=== PATIENT | male | born 1970 | race Caucasian/White ===

== ENCOUNTER 2016-12-12 22:11 | Emergency (ER) | payer OTHER, SELFPAY ==
[~2016-12-12] VITALS: Ht 172.7 cm; Wt 96.4 kg
[2016-12-12 23:18] LABS: MEAN CORPUSCULAR HEMOGLOBIN 32.7 pg (27.0-33.0); MEAN CORPUSCULAR HGB CONC 34.3 g/dl (32.0-36.5); MEAN CORPUSCULAR VOLUME 95.3 fl (80.0-96.0); RED CELL DISTRIBUTION WIDTH 13.4 % (11.5-14.5); WHITE BLOOD COUNT 12.5 K/mm3 (4.0-10.0)
[2016-12-13 00:07] LABS: ALBUMIN 4.2 GM/DL (3.2-5.2); ALBUMIN/GLOBULIN RATIO 1.05 (1.00-1.93); ALKALINE PHOSPHATASE 74 U/L (45-117); ALT/SGPT 54 U/L (12-78); ANION GAP 9 MEQ/L (8-16); AST/SGOT 40 U/L (15-37); BILIRUBIN,DIRECT < 0.1 MG/DL (0.0-0.2); BILIRUBIN,TOTAL 0.2 MG/DL (0.2-1.0); BLOOD UREA NITROGEN 14 MG/DL (7-18); CALCIUM LEVEL 9.2 MG/DL (8.5-10.1); CARBON DIOXIDE LEVEL 25 MEQ/L (21-32); CHLORIDE LEVEL 106 MEQ/L (98-107); CREATININE FOR GFR 0.89 MG/DL (0.70-1.30); GLOMERULAR FILTRATION RATE > 60.0 (>60); GLUCOSE, FASTING 89 MG/DL (70-105); POTASSIUM SERUM 4.2 MEQ/L (3.5-5.1); SODIUM LEVEL 140 MEQ/L (136-145); TOTAL PROTEIN 8.2 GM/DL (6.4-8.2)
[2016-12-13 05:29] VITALS: BP 133/85
== END 2016-12-13 05:30 | disposition home or self-care (01) ==
LOC: M ED 23:44
DX: F10.129 Alcohol abuse with intoxication, unspecified (principal); E78.5 Hyperlipidemia, unspecified
CPT/HCPCS: 36415; 80048; 80076; 84443; 85027; 99284; G0480

== ENCOUNTER 2019-05-21 12:24 | Emergency (ER) | payer OTHER, SELFPAY ==
[~2019-05-21] VITALS: Ht 172.7 cm; Wt 94.7 kg
[2019-05-21] MEDS ORDERED: ISOVUE-370 76% 100ML VIAL (Q9967) As Ordered ONE (13:18)
[2019-05-21 13:30] LABS: BILIRUBIN, URINE MANUAL NEGATIVE (NEGATIVE); GLUCOSE, URINE (UA) MANUAL NEGATIVE (NEGATIVE); KETONE, URINE MANUAL NEGATIVE (NEGATIVE); UROBILINOGEN, URINE MANUAL NORMAL (NORMAL)
[2019-05-21 13:37] LABS: BASO # 0.1 10^3/uL (0.0-0.2); BASO % 0.4 % (0.0-1.0); EOS # 0.1 10^3/uL (0.0-0.5); EOS % 0.3 % (0.0-3.0); HEMATOCRIT 46.4 % (42.0-52.0); HEMOGLOBIN 15.4 g/dl (13.5-17.5); LYMPH # 1.3 10^3/uL (1.5-5.0); LYMPH % 6.7 % (24.0-44.0); MEAN CORPUSCULAR HEMOGLOBIN 32.4 pg (27.0-33.0); MEAN CORPUSCULAR HGB CONC 33.2 g/dl (32.0-36.5); MEAN CORPUSCULAR VOLUME 97.7 fl (80.0-96.0); MONO # 0.8 10^3/uL (0.0-0.8); MONO % 4.3 % (0.0-5.0); NEUTROPHILS # 16.9 10^3/uL (1.5-8.5); NEUTROPHILS % 87.8 % (36.0-66.0); PLATELET COUNT, AUTOMATED 214 10^3/uL (150-450); RED BLOOD COUNT 4.75 10^6/uL (4.30-6.10); WHITE BLOOD COUNT 19.2 10^3/uL (4.0-10.0)
[2019-05-21 13:47] LABS: BACTERIA, URINE SMALL AMOUNT; HYALINE CAST, URINE NONE SEEN /lpf (0-1); RENAL EPITHELIAL CELLS, URINE SMALL AMOUNT /hpf; SQUAMOUS EPITHELIAL CELL URINE SMALL AMOUNT /hpf (SMALL AMT)
--- NOTE | 2019-05-21 13:57 | REP ---
Clinical: Perirectal pain and swelling. Technique: Axial contrast enhanced images from the lung bases to the pubic symphysis using 100 ml Isovue 370 intravenous contrast material with coronal and sagittal re-formations. Findings: There is a left pararenal abscess measuring 2.2 x 1.0 cm maximal diameter and approximately 7.8 cm in length. Subtle adjacent dermal thickening and subcutaneous stranding noted. Fatty infiltration to the liver without focal hepatic lesion. Spleen, pancreas, gallbladder, right adrenal gland and bilateral kidneys are normal. 3.7 cm complex enhancing lesion in the left adrenal gland. The enteric system is without obstruction or acute inflammatory process. Normal terminal ileum and appendix identified in the right lower quadrant. Sigmoid diverticulosis noted without acute diverticulitis. Pelvis demonstrates normal bladder and age appropriate prostate/seminal vesicles. Atherosclerotic changes to the aorta without aneurysm or dissection. Musculoskeletal structures are intact. Lung bases are clear. Impression: 1. Deep left perirectal/perianal abscess. 2. Sigmoid diverticulosis without acute diverticulitis. 3. Hepatic steatosis. 4. 3.6 cm heterogeneous enhancing nonspecific left adrenal mass possible atypical adenoma requires outpatient investigation. Electronically Signed by Rich Tan MD 05/21/2019 01:48 P
[2019-05-21 14:00] LABS: ALBUMIN 3.7 GM/DL (3.2-5.2); BILIRUBIN,DIRECT 0.1 MG/DL (0.0-0.2); BILIRUBIN,TOTAL 0.4 MG/DL (0.2-1.0); TOTAL PROTEIN 7.6 GM/DL (6.4-8.2)
[2019-05-21] MEDS ORDERED: PIPERACILLIN/TAZOBACTAM SOD 3.375 GM in D5W MINI-BAG PLUS 50 ML IV ONE (14:30)
[2019-05-21] MEDS ORDERED: ACETAMINOPHEN 325 MG TAB PO ONE (14:30)
[2019-05-21] MEDS ORDERED: FLAG500T PO (15:13)
[2019-05-21] MEDS ORDERED: CIPR-249 PO (15:13)
[2019-05-21 16:07] VITALS: BP 127/70
--- NOTE | 2019-05-24 10:29 | CR ---
DATE OF CONSULTATION: 05/21/2019 CHIEF COMPLAINT: Perirectal pain. HISTORY OF PRESENT ILLNESS: Patient is 48-year-old male who presents with perirectal pain and swelling for the past few days. It has been getting progressively worse. He denies any drainage on his own. He has had a similar lesion like this about 4 years ago that got really large. He came to emergency room, was not ever placed on any antibiotics or anything. It eventually popped on its own, relieve the pressure and went away. He has never had any surgeries or procedures performed. No colonoscopy. Only minimal anal exams. He has had intermittent swelling of this area over the past 4 years as well. Nothing has required any other treatment. This time, the reason he came is because he was having some fevers at home and some chills. In the emergency room, he did have a slight fever. White count was elevated. He had some fullness of perianal area on exam and CT was done which confirmed the perirectal abscess. Therefore, I was called to evaluate. PAST MEDICAL HISTORY: Hyperlipidemia, tobacco abuse. PAST SURGICAL HISTORY: None. ALLERGIES: None. HOME MEDICATIONS: Please see medical record. REVIEW OF SYSTEMS: Pertinent positives and negatives as stated in the history of present illness (HPI). PHYSICAL EXAMINATION: General: Alert and oriented times three. In no acute distress. VITALS: Temperature 100.7, pulse 76, respirations 17, blood pressure 127/70, pulse ox 96% room air. HEENT: Pupils equal round react to light and accommodation. HEART: S1, S2 regular rate and rhythm. LUNGS: Clear to auscultation bilaterally. Abdomen: Soft, nontender, nondistended. ANAL EXAM: There is a large perirectal abscess to the left of midline. There is about a 3 mm opening that is actively draining purulent fluid already likely secondary to infected fistula. LABORATORY DATA: White count 19.2, hemoglobin 15.4, platelets 214. IMAGING STUDIES: CT abdomen and pelvis shows a deep left perirectal perianal abscess, sigmoid diverticulosis without diverticulitis. ASSESSMENT/PLAN: The patient 48-year-old male with a perirectal abscess. Recommendation is to continue warm soaks and by mouth antibiotics. He is stable to be discharged home. He can use the antibiotics, Cipro and Flagyl for about 10 days. He will followup me in the office in 2 weeks and we will schedule him for outpatient perianal exam under anesthesia with possible fistulotomy in about 4-6 weeks. All of his questions were answered and he will return in the emergency room if the pain gets any worse, swelling gets worse, or he continues to have fevers.
--- NOTE | 2019-05-24 14:31 | ED PDOC ---
Post-Departure Follow-Up dr ohara faxed formal report of ct abd/pf ro fu George Hogan MD May 24, 2019 14:31
== END 2019-05-21 16:08 | disposition home or self-care (01) ==
LOC: M ED 12:24
DX: K61.1 Rectal abscess (principal); E78.5 Hyperlipidemia, unspecified; F17.200 Nicotine dependence, unspecified, uncomplicated
CPT/HCPCS: 74177; 80047; 80076; 81000; 83605; 85025; 96365; 99284; J2543; Q9967

== ENCOUNTER 2019-06-30 07:05 | Day surgery (SDC) | payer OTHER ==
[~2019-06-30] VITALS: Ht 172.7 cm; Wt 89.4 kg
[~2019-06-30 07:05] MED LIST: CIPR-249 PO; FLAG500T PO; NS 1,000 ML IV ONE
[2019-06-30] MEDS ORDERED: propofoL 200 MG/20 ML VIAL As Ordered ONE ×3 (08:19→08:30)
[2019-06-30] MEDS ORDERED: LIDOCAINE 2% INJ 100 MG/5 ML SDV (FOR ANES.) As Ordered ONE (08:20)
--- NOTE | 2019-06-30 08:40 | ROOR ---
Patient Name: Ancelmo Art Procedure Date: 06/30/2019 8:09 AM Date of : 1970 Age: 48 Room: [facility] Gender: Male Note Status: Finalized Procedure: Colonoscopy Indications: Screening for colorectal malignant neoplasm Providers: DO Jerica Gamez MD: Enrike Weinberg MD Requesting Provider: Medicines: Propofol per Anesthesia Complications: No immediate complications. Procedure: Pre-Anesthesia Assessment: - Prior to the procedure, a History and Physical was performed, and patient medications and allergies were reviewed. The patient is competent. The risks and benefits of the procedure and the sedation options and risks were discussed with the patient. All questions were answered and informed consent was obtained. Patient identification and proposed procedure were verified by the physician, the nurse and the anesthesiologist in the endoscopy suite. Mental Status Examination: normal. Airway Examination: normal oropharyngeal airway and neck mobility. Respiratory Examination: clear to auscultation. CV Examination: normal. Prophylactic Antibiotics: The patient does not require prophylactic antibiotics. Prior Anticoagulants: The patient has taken no previous anticoagulant or antiplatelet agents. ASA Grade Assessment: II - A patient with mild systemic disease. After reviewing the risks and benefits, the patient was deemed in satisfactory condition to undergo the procedure. The anesthesia plan was to use moderate sedation / analgesia (conscious sedation). Immediately prior to administration of medications, the patient was re-assessed for adequacy to receive sedatives. The heart rate, respiratory rate, oxygen saturations, blood pressure, adequacy of pulmonary ventilation, and response to care were monitored throughout the procedure. The physical status of the patient was re-assessed after the procedure. The Colonoscope was introduced through the anus and advanced to the cecum, identified by appendiceal orifice and ileocecal valve. The colonoscopy was performed without difficulty. The patient tolerated the procedure well. Findings: Multiple small and large-mouthed diverticula were found in the sigmoid colon and ascending colon. Two hyperplastic polyps were found in the sigmoid colon. The polyps were 2 to 4 mm in size. These polyps were removed with a jumbo cold forceps. Resection and retrieval were complete. Estimated blood loss was minimal. Internal hemorrhoids were found during retroflexion. The hemorrhoids were mild and Grade I (internal hemorrhoids that do not prolapse). The exam was otherwise without abnormality on direct and retroflexion views. Impression: - Diverticulosis in the sigmoid colon and in the ascending colon. - Two 2 to 4 mm polyps in the sigmoid colon, removed with a jumbo cold forceps. Resected and retrieved. - Internal hemorrhoids. - The examination was otherwise normal on direct and retroflexion views. Recommendation: - Patient has a contact number available for emergencies. The signs and symptoms of potential delayed complications were discussed with the patient. Return to normal activities tomorrow. Written discharge instructions were provided to the patient. - Repeat colonoscopy in 5-10 years for surveillance based on pathology results. - Return to my office as previously scheduled. Kevyn Abel DO 06/30/2019 8:39:40 AM Electronically signed by Kevyn Abel DO Number of Addenda: 0 Note Initiated On: 06/30/2019 8:09 AM Estimated Blood Loss: Estimated blood loss was minimal.
[2019-06-30 09:05] VITALS: BP 120/75
== END 2019-06-30 09:16 | disposition home or self-care (01) ==
LOC: M OPP 07:05
PROVIDERS: ATTEND Surgery
DX: Z12.11 Encounter for screening for malignant neoplasm of colon (principal); K64.0 First degree hemorrhoids; K63.5 Polyp of colon; K57.30 Diverticulosis of large intestine without perforation or abscess without bleeding; F17.210 Nicotine dependence, cigarettes, uncomplicated

== ENCOUNTER 2019-07-12 06:17 | Day surgery (SDC) | payer OTHER ==
[~2019-07-12] VITALS: Ht 172.7 cm; Wt 96.5 kg
[~2019-07-12 06:17] MED LIST changes: +LIDOCAINE 1% MDV 20ML VIAL SQ PRN; +LR 1,000 ML IV ONE; -NS 1,000 ML IV ONE
[2019-07-12] MEDS ORDERED: LIDOCAINE 2% INJ 100 MG/5 ML SDV (FOR ANES.) As Ordered ONE (07:11)
[2019-07-12] MEDS ORDERED: fentaNYL 100 MCG/2 ML INJECTION (J3010) As Ordered ONE (07:11)
[2019-07-12] MEDS ORDERED: ONDANSETRON 4MG/2ML VIAL (J2405) As Ordered ONE (07:11)
[2019-07-12] MEDS ORDERED: MIDAZOLAM INJ 2 MG/2 ML VIAL (J2250) As Ordered ONE (07:11)
[2019-07-12] MEDS ORDERED: propofoL 200 MG/20 ML VIAL As Ordered ONE (07:11)
[2019-07-12] MEDS ORDERED: ROCURONIUM BROMIDE 50 MG/5 ML VIAL As Ordered ONE (07:17)
[2019-07-12] MEDS ORDERED: CHLOROPROCAINE 2 % INJ PRES.FREE 20 ML VIAL (J2400) As Ordered ONE (07:44)
[2019-07-12] MEDS ORDERED: LR 1,000 ML IV SCH (08:15)
[2019-07-12] MEDS ORDERED: ONDANSETRON 4MG/2ML VIAL (J2405) IV PRN (08:15)
[2019-07-12] MEDS ORDERED: METOCLOPRAMIDE INJ 10MG/2ML VIAL (J2765) IV PRN (08:15)
[2019-07-12] MEDS ORDERED: fentaNYL 100 MCG/2 ML INJECTION (J3010) IV PRN (08:15)
[2019-07-12] MEDS ORDERED: oxyCODONE 5MG TAB PO PRN (08:15)
[2019-07-12] MEDS ORDERED: MEPERIDINE INJ 25 MG/ML VIAL (J2175) IV PRN (08:15)
[2019-07-12] MEDS ORDERED: GLYCOPYRROLATE INJ 0.2 MG/ML 2 ML VIAL As Ordered ONE (08:38)
[2019-07-12] MEDS ORDERED: GLYCOPYRROLATE INJ 0.2 MG/ML 2 ML VIAL IV PRN (08:45)
[2019-07-12] MEDS ORDERED: NORCO, ANEXSIA 5/325MG TABLET (HYDROcodone/ACETAMINOPHEN) PO PRN (09:16)
--- NOTE | 2019-07-12 09:20 | RO ---
DATE OF PROCEDURE: 07/12/2019 PREOPERATIVE DIAGNOSIS: Perianal fistula. POSTOPERATIVE DIAGNOSIS: Perianal fistula. PROCEDURE: Rectal exam under anesthesia with fistulotomy. SURGEON: Dr. Kevyn Abel CARDING DOUBLER: None. ANESTHESIA: Spinal with sedation. COMPLICATIONS: None. INDICATIONS FOR PROCEDURE: The patient is a 48-year-old male who has had multiple recurrent perianal abscesses and found to have a possible fistula on exam in the office as well as during colonoscopy. Recommendation was to proceed with rectal exam under anesthesia with possible fistulotomy. Risks and benefits of the procedure not limited to, but including bleeding, infection, damage to surrounding structures, need for further surgery and fecal incontinence were discussed in detail with the patient. Informed consent was obtained and the procedure was planned. DESCRIPTION OF PROCEDURE: The patient was brought back to operating room three. After sufficient spinal sedation he was placed in the prone position. The perirectal area was sterilely prepped and draped with Betadine. Next, a time out was done to confirm proper patient and proper procedure. Following that, a retractor was placed inside the rectum. The area was examined for any signs of fistulous tracts internally and nothing was easily apparent. There was opening in the perianal skin at about the 7 o'clock position. This was probed gently with a flexible probe. It only went in about 1.5 cm. I used the cautery to open the skin over top of this. Once the tract was opened, deep inside there was another separate hole extending posteriorly. I was able to probe that as well, which only went in another a few mm and ended bluntly as well. No signs of any tract extending inside of the perirectal area. This area was all opened up where the fistula tracts were identified. The retractor was then removed. The area was cleaned and dried. The patient was awakened from anesthesia and then taken to the postanesthesia care unit (PACU) in stable condition.
[2019-07-12] MEDS ORDERED: ATROPINE SULF 1MG/10ML SYRINGE (J0461) As Ordered ONE (09:36)
[2019-07-12] MEDS ORDERED: ATROPINE SULF 0.4 MG/ML 1ML VIAL (J0461) IV ONE ×3 (10:00→11:00)
[2019-07-12 11:13] VITALS: BP 160/90
== END 2019-07-12 11:15 | disposition home or self-care (01) ==
LOC: M SDC 06:17
PROVIDERS: ATTEND Surgery
DX: K60.3 Anal fistula (principal); R03.0 Elevated blood-pressure reading, without diagnosis of hypertension; E78.5 Hyperlipidemia, unspecified; Z79.899 Other long term (current) drug therapy; F17.210 Nicotine dependence, cigarettes, uncomplicated
CPT/HCPCS: 46270; J0461; J2250; J2400; J2405; J3010

== ENCOUNTER → 2020-10-18 | Outpatient (REF) | payer OTHER ==
[~2020-10-18] MED LIST changes: -LIDOCAINE 1% MDV 20ML VIAL SQ PRN; -LR 1,000 ML IV ONE
[2020-10-19 12:11] LABS: BASO # 0.1 10^3/uL (0.0-0.2); BASO % 1.1 % (0.0-1.0); EOS # 0.4 10^3/uL (0.0-0.5); EOS % 3.3 % (0.0-3.0); HEMATOCRIT 47.2 % (42.0-52.0); LYMPH % 25.6 % (24.0-44.0); MEAN CORPUSCULAR HEMOGLOBIN 32.1 pg (27.0-33.0); MEAN CORPUSCULAR HGB CONC 33.9 g/dl (32.0-36.5); MEAN CORPUSCULAR VOLUME 94.6 fl (80.0-96.0); MONO # 0.8 10^3/uL (0.0-0.8); MONO % 7.1 % (2.0-8.0); NEUTROPHILS # 7.1 10^3/uL (1.5-8.5); NEUTROPHILS % 61.7 % (36.0-66.0); PLATELET COUNT, AUTOMATED 284 10^3/uL (150-450); RED BLOOD COUNT 4.99 10^6/uL (4.30-6.10); WHITE BLOOD COUNT 11.6 10^3/uL (4.0-10.0)
== END ==
LOC: M SFHCCLAY 15:09
PROVIDERS: ATTEND Family Medicine
DX: D72.829 Elevated white blood cell count, unspecified (principal)

== ENCOUNTER → 2020-11-18 | Outpatient (CLI) | payer OTHER ==
--- NOTE | 2020-11-20 11:19 | REP ---
INDICATION: DISORDER OF ADRENAL GLAND, UNSPECIFIED COMPARISON: CT dated 05/21/2019 TECHNIQUE: Standard noncontrast axial T1 and T2 phase sequences including in/out of phase images for evaluation of adrenal lesion. FINDINGS: 3.3 cm left adrenal mass demonstrates signal characteristics consistent with benign atypical adrenal adenoma. Visualized portions of the liver, spleen and kidneys as well as the pancreas, gallbladder, right adrenal gland appear essentially normal by noncontrast MRI evaluation. IMPRESSION: Left adrenal lesion corresponds to benign atypical adenoma. <Electronically signed by Rich Tan > 11/20/20 1112
== END ==
LOC: M RAD 14:47
PROVIDERS: ATTEND Family Medicine
DX: E27.8 Other specified disorders of adrenal gland (principal)

== ENCOUNTER → 2021-01-05 | Outpatient (CLI) | payer OTHER ==
[~2021-01-05] MED LIST changes: +GASTROGRAFIN SOLUTION 30ML (Q9963) As Ordered ONE; +ISOVUE-370 76% 100ML VIAL As Ordered ONE
--- NOTE | 2021-01-05 11:51 | REP ---
INDICATION: LYMPHADENOPATHY. COMPARISON: 09/04/2020 from an outside institution TECHNIQUE: Standard helical technique after the intravenous administration of 100 cc Isovue 370 and oral bowel preparatory contrast administration. FINDINGS: The lung bases are clear. The liver, gallbladder, spleen, pancreas, and adrenal glands are unchanged. There are bilateral adrenal gland nodules left greater than right which are stable. Since no noncontrast enhanced images were obtained a cannot be effectively evaluated by CT. The abdominal aorta and para-aortic regions are within normal limits. There is no para-aortic adenopathy. These lymph nodes have decreased in size compared to the prior exam. There are chronic descending colon and sigmoid colon diverticular changes, however, the intense inflammatory response seen previously in the sigmoid colon and perirectal soft tissues has abated with evidence of scarring. Nonenlarged pelvic sidewall lymph nodes are noted. These have decreased in size compared to the prior exam. There is no evidence of free fluid or free air. There is no change in the osseous structures. IMPRESSION: Improved findings as described above. Although the findings have improved this examination cannot rule out bowel carcinoma and if that remains a clinical concern then colonoscopy is recommended. Bilateral adrenal gland nodules unchanged from the prior exam but incompletely evaluated without noncontrast CT or adrenal gland MRI. Other findings as described above. <Electronically signed by Ivan Hodges > 01/05/21 0362
== END ==
LOC: M RAD 09:19
PROVIDERS: ATTEND Internal Medicine Hematology & Oncology
DX: R59.9 Enlarged lymph nodes, unspecified (principal)
CPT/HCPCS: 74177; Q9963; Q9967

== ENCOUNTER → 2021-03-02 | Outpatient (CLI) | payer OTHER ==
[~2021-03-02] MED LIST changes: -GASTROGRAFIN SOLUTION 30ML (Q9963) As Ordered ONE; -ISOVUE-370 76% 100ML VIAL As Ordered ONE
== END ==
LOC: M LABSMTC 09:23
PROVIDERS: ATTEND Anesthesiology
DX: Z01.812 Encounter for preprocedural laboratory examination (principal); Z20.822 Contact with and (suspected) exposure to COVID-19

== ENCOUNTER 2021-03-07 08:17 | Day surgery (SDC) | payer OTHER ==
[~2021-03-07] VITALS: Ht 177.8 cm; Wt 95.0 kg
[~2021-03-07 08:17] MED LIST changes: +NS 1,000 ML IV ONE
[2021-03-07] MEDS ORDERED: propofoL 200 MG/20 ML VIAL As Ordered ONE ×2 (09:23→09:38)
--- NOTE | 2021-03-07 09:56 | ROOR ---
Patient Name: Ancelmo Art Procedure Date: 03/07/2021 9:22 AM Date of : 1970 Age: 50 Room: [facility] Gender: Male Note Status: Finalized Procedure: Colonoscopy Indications: Suspected colitis Providers: Kevyn Abel DO Referring MD: Renate MAYS DO Requesting Provider: Medicines: Propofol per Anesthesia Complications: No immediate complications. Procedure: Pre-Anesthesia Assessment: - Prior to the procedure, a History and Physical was performed, and patient medications and allergies were reviewed. The patient is competent. The risks and benefits of the procedure and the sedation options and risks were discussed with the patient. All questions were answered and informed consent was obtained. Patient identification and proposed procedure were verified by the physician, the nurse, the anesthesiologist and the computer operations technician in the endoscopy suite. Mental Status Examination: alert and oriented. Airway Examination: normal oropharyngeal airway and neck mobility. Respiratory Examination: clear to auscultation. CV Examination: normal. Prophylactic Antibiotics: The patient does not require prophylactic antibiotics. Prior Anticoagulants: The patient has taken no previous anticoagulant or antiplatelet agents. ASA Grade Assessment: III - A patient with severe systemic disease. After reviewing the risks and benefits, the patient was deemed in satisfactory condition to undergo the procedure. The anesthesia plan was to use monitored anesthesia care (MAC). Immediately prior to administration of medications, the patient was re-assessed for adequacy to receive sedatives. The heart rate, respiratory rate, oxygen saturations, blood pressure, adequacy of pulmonary ventilation, and response to care were monitored throughout the procedure. The physical status of the patient was re-assessed after the procedure. The was introduced through the anus with the intention of advancing to the cecum. The scope was advanced to the sigmoid colon before the procedure was aborted. Medications were not given. The colonoscopy was performed without difficulty. The patient tolerated the procedure well. Findings: The sigmoid colon was grossly redundant. Advancing the scope required changing the patient to a supine position. Multiple small-mouthed diverticula were found in the sigmoid colon. Five hyperplastic polyps were found in the sigmoid colon. The polyps were 3 to 7 mm in size. Estimated blood loss was minimal. Impression: - Redundant colon. - Diverticulosis in the sigmoid colon. - Five 3 to 7 mm polyps in the sigmoid colon. - No specimens collected. Recommendation: - Patient has a contact number available for emergencies. The signs and symptoms of potential delayed complications were discussed with the patient. Return to normal activities tomorrow. Written discharge instructions were provided to the patient. - Await pathology results. - Repeat colonoscopy in 3 - 5 years for surveillance based on pathology results. - Perform a barium enema at the next available appointment. Procedure Code(s): --- Professional --- 93891, 53, Colonoscopy, flexible; diagnostic, including collection of specimen(s) by brushing or washing, when performed (separate procedure) Diagnosis Code(s): --- Professional --- K63.5, Polyp of colon K57.30, Diverticulosis of large intestine without perforation or abscess without bleeding Q43.8, Other specified congenital malformations of intestine CPT copyright 2019 [employer]. All rights reserved. The codes documented in this report are preliminary and upon telegraph office route aide review may be revised to meet current compliance requirements. Kevyn Abel DO 03/07/2021 9:56:11 AM Electronically signed by Kevyn Abel DO Number of Addenda: 0 Note Initiated On: 03/07/2021 9:22 AM Estimated Blood Loss: Estimated blood loss was minimal.
[2021-03-07 10:20] VITALS: BP 101/57
[2021-03-07] MEDS ORDERED: LIQUID POLIBAR PLUS 105% w/v 750ML BTL As Ordered ONE ×2 (13:18→13:20)
--- NOTE | 2021-03-07 17:14 | REP ---
INDICATION: INCOMPLETE COLONOSCOPY TO SIGMOID. COMPARISON: None TECHNIQUE: The procedure was performed by JAQUELIN Ledesma, under the direct supervision of Dr. Carroll. The images were reviewed with Dr. Dr. Carroll. Liquid barium and air were instilled into the colon and retrograde flow of the barium air mixture. FINDINGS: The sound effects supervisor film shows no organomegaly, or pathological masses. The intestinal gas pattern is unremarkable. The colon is normal in position. Diffuse diverticula throughout the colon, with a majority in the sigmoid colon. There is persistent narrowing of the distal sigmoid measuring approximately 3 cm in length, this could be due to either a stricture or spasm. Underlying neoplasm or polyps of the sigmoid cannot be ruled out. There are multiple irregular filling defects noted diffusely throughout the right and right transverse colon, this is likely due to retained feces but underlying polyps cannot be ruled out. There is free flow of contrast to the cecum. There is reflux into the terminal ileum. The appendix is visualized. IMPRESSION: 1. Diverticula are visualized diffusely most within the sigmoid colon. This limits evaluation for underlying polyps. 2. Persistent narrowing of the distal sigmoid measuring approximately 3 cm in length as described above. Spasm versus stricture. Neoplasm at this location is not excluded. 3. Multiple irregular filling defects throughout the right and transverse colon, underlying neoplasm or polyps can not be ruled out. 0.5 minutes of fluoroscopy time was utilized for this procedure. Some fluoroscopic images are performed with last image hold technology. These images require no additional radiation <Electronically signed by Vikki Agrawal > 03/07/21 1658 <Electronically signed by Kevyn Carroll > 03/07/21 1711
== END 2021-03-07 11:44 | disposition home or self-care (01) ==
LOC: M OPP 08:17
PROVIDERS: ATTEND Surgery
DX: K52.9 Noninfective gastroenteritis and colitis, unspecified (principal)

== ENCOUNTER 2022-03-15 12:33 | Inpatient (IN) | payer OTHER ==
[~2022-03-15] VITALS: Ht 175.3 cm; Wt 88.8 kg
[~2022-03-15 12:33] MED LIST changes: -NS 1,000 ML IV ONE
[2022-03-15 14:48] LABS: BASO # 0.1 10^3/uL (0.0-0.2); BASO % 0.5 % (0.0-1.0); EOS # 0.2 10^3/uL (0.0-0.5); EOS % 0.9 % (0.0-3.0); HEMATOCRIT 44.2 % (42.0-52.0); HEMOGLOBIN 14.9 g/dl (13.5-17.5); LYMPH # 1.6 10^3/uL (1.5-5.0); LYMPH % 8.7 % (24.0-44.0); MEAN CORPUSCULAR HGB CONC 33.7 g/dl (32.0-36.5); MEAN CORPUSCULAR VOLUME 95.1 fl (80.0-96.0); MONO # 1.2 10^3/uL (0.0-0.8); MONO % 6.6 % (2.0-8.0); NEUTROPHILS # 15.4 10^3/uL (1.5-8.5); NEUTROPHILS % 82.8 % (36.0-66.0); PLATELET COUNT, AUTOMATED 492 10^3/uL (150-450); RED BLOOD COUNT 4.65 10^6/uL (4.30-6.10); WHITE BLOOD COUNT 18.5 10^3/uL (4.0-10.0)
[2022-03-15 15:31] LABS: ALBUMIN 3.3 GM/DL (3.2-5.2); BILIRUBIN,DIRECT 0.2 MG/DL (0.0-0.2); BILIRUBIN,TOTAL 0.5 MG/DL (0.2-1.0); TOTAL PROTEIN 7.6 GM/DL (6.4-8.2)
[2022-03-15] MEDS ORDERED: CIPROFLOXACIN 400 MG in IV 1 EA IV ONE (17:20)
[2022-03-15] MEDS ORDERED: NS 1,000 ML IV ONE (17:20)
[2022-03-15] MEDS ORDERED: ISOVUE-370 76% 100ML VIAL As Ordered ONE (17:28)
[2022-03-15] MEDS ORDERED: MORPHINE 4 MG/ML 1ML VIAL/SYRINGE IV ONE (18:05)
[2022-03-15] MEDS ORDERED: metroNIDAZOLE 500 MG in IV 1 EA IV ONE (19:30)
[2022-03-15] MEDS ORDERED: HYDROMORPHONE HCL 0.5 MG/ 0.5 ML SYRINGE (J1170 PER 1) IV PRN (20:15)
[2022-03-15] MEDS ORDERED: HOME MED LIST COMPLETE! XX SCH (20:50)
[2022-03-15] MEDS: LR 1,000 ML IV SCH (21:31)
[2022-03-15] MEDS: HEPARIN SOD (PORCINE) 5000UNITS/ML 1ML VIAL/SYRINGE SC SCH (22:11)
[2022-03-16] MEDS: LR 1,000 ML IV SCH ×3 (04:15→21:00)
[2022-03-16] MEDS: metroNIDAZOLE 500 MG in IV 1 EA IV SCH ×3 (04:56→19:52)
[2022-03-16] MEDS: HEPARIN SOD (PORCINE) 5000UNITS/ML 1ML VIAL/SYRINGE SC SCH ×3 (05:04→21:01)
[2022-03-16] MEDS: CIPROFLOXACIN 400 MG in IV 1 EA IV SCH ×2 (06:09→17:59)
[2022-03-16] MEDS: KETOROLAC 30 MG/ML 1ML VIAL IV PRN (07:28)
[2022-03-16 08:21] LABS: BASO # 0.1 10^3/uL (0.0-0.2); BASO % 0.4 % (0.0-1.0); EOS # 0.2 10^3/uL (0.0-0.5); EOS % 1.1 % (0.0-3.0); HEMATOCRIT 38.3 % (42.0-52.0); LYMPH # 1.7 10^3/uL (1.5-5.0); MEAN CORPUSCULAR HEMOGLOBIN 32.3 pg (27.0-33.0); MEAN CORPUSCULAR HGB CONC 33.9 g/dl (32.0-36.5); MEAN CORPUSCULAR VOLUME 95.3 fl (80.0-96.0); MONO % 10.3 % (2.0-8.0); NEUTROPHILS # 13.4 10^3/uL (1.5-8.5); NEUTROPHILS % 77.6 % (36.0-66.0); PLATELET COUNT, AUTOMATED 426 10^3/uL (150-450); RED BLOOD COUNT 4.02 10^6/uL (4.30-6.10); WHITE BLOOD COUNT 17.3 10^3/uL (4.0-10.0)
[2022-03-16 08:34] LABS: MONO # 1.8 10^3/uL (0.0-0.8)
[2022-03-16 08:53] LABS: BLOOD UREA NITROGEN 9 MG/DL (7-18); CALCIUM LEVEL 8.4 MG/DL (8.5-10.1); CARBON DIOXIDE LEVEL 28 MEQ/L (21-32); CHLORIDE LEVEL 102 MEQ/L (98-107); CREATININE FOR GFR 0.82 MG/DL (0.70-1.30); GLOMERULAR FILTRATION RATE > 60.0 (>56); GLUCOSE, FASTING 107 MG/DL (70-100); POTASSIUM SERUM 3.7 MEQ/L (3.5-5.1); SODIUM LEVEL 134 MEQ/L (136-145)
[2022-03-16 14:58] VITALS: BP 125/67
[2022-03-16 17:00] VITALS: BP 118/64
[2022-03-16 22:00] VITALS: BP 109/55
[2022-03-17] MEDS: KETOROLAC 30 MG/ML 1ML VIAL IV PRN ×3 (01:26→19:23)
[2022-03-17] MEDS: metroNIDAZOLE 500 MG in IV 1 EA IV SCH ×3 (03:05→19:23)
[2022-03-17] MEDS: LR 1,000 ML IV SCH ×2 (03:47→12:20)
[2022-03-17] MEDS: CIPROFLOXACIN 400 MG in IV 1 EA IV SCH ×2 (05:10→17:36)
[2022-03-17] MEDS: HEPARIN SOD (PORCINE) 5000UNITS/ML 1ML VIAL/SYRINGE SC SCH ×2 (05:10→14:46)
[2022-03-17 06:00] VITALS: BP 122/69
[2022-03-17 06:57] LABS: BASO # 0.1 10^3/uL (0.0-0.2); BASO % 0.5 % (0.0-1.0); EOS # 0.3 10^3/uL (0.0-0.5); EOS % 2.2 % (0.0-3.0); HEMATOCRIT 36.2 % (42.0-52.0); HEMOGLOBIN 12.1 g/dl (13.5-17.5); LYMPH # 2.2 10^3/uL (1.5-5.0); LYMPH % 15.5 % (24.0-44.0); MEAN CORPUSCULAR HEMOGLOBIN 32.1 pg (27.0-33.0); MEAN CORPUSCULAR HGB CONC 33.4 g/dl (32.0-36.5); MONO # 1.4 10^3/uL (0.0-0.8); MONO % 10.1 % (2.0-8.0); NEUTROPHILS # 9.9 10^3/uL (1.5-8.5); NEUTROPHILS % 71.1 % (36.0-66.0); PLATELET COUNT, AUTOMATED 385 10^3/uL (150-450); RED BLOOD COUNT 3.77 10^6/uL (4.30-6.10); WHITE BLOOD COUNT 13.9 10^3/uL (4.0-10.0)
[2022-03-17 07:41] LABS: BLOOD UREA NITROGEN 11 MG/DL (7-18); CALCIUM LEVEL 8.2 MG/DL (8.5-10.1); CARBON DIOXIDE LEVEL 27 MEQ/L (21-32); CHLORIDE LEVEL 102 MEQ/L (98-107); CREATININE FOR GFR 0.82 MG/DL (0.70-1.30); GLOMERULAR FILTRATION RATE > 60.0 (>56); GLUCOSE, FASTING 112 MG/DL (70-100); POTASSIUM SERUM 3.7 MEQ/L (3.5-5.1); SODIUM LEVEL 136 MEQ/L (136-145)
[2022-03-17] MEDS: NS 1,000 ML IV SCH (20:37)
[2022-03-17 22:00] VITALS: BP 123/68
[2022-03-18] MEDS: KETOROLAC 30 MG/ML 1ML VIAL IV PRN ×4 (01:37→20:03)
[2022-03-18] MEDS: NS 1,000 ML IV SCH ×2 (01:38→15:11)
[2022-03-18] MEDS: metroNIDAZOLE 500 MG in IV 1 EA IV SCH ×3 (03:53→20:04)
[2022-03-18] MEDS: CIPROFLOXACIN 400 MG in IV 1 EA IV SCH ×2 (05:02→18:03)
[2022-03-18 06:20] LABS: BASO # 0.1 10^3/uL (0.0-0.2); BASO % 0.4 % (0.0-1.0); EOS # 0.3 10^3/uL (0.0-0.5); EOS % 1.9 % (0.0-3.0); HEMOGLOBIN 11.9 g/dl (13.5-17.5); LYMPH # 2.2 10^3/uL (1.5-5.0); LYMPH % 15.1 % (24.0-44.0); MEAN CORPUSCULAR HEMOGLOBIN 30.8 pg (27.0-33.0); MEAN CORPUSCULAR HGB CONC 32.2 g/dl (32.0-36.5); MEAN CORPUSCULAR VOLUME 95.9 fl (80.0-96.0); MONO # 1.3 10^3/uL (0.0-0.8); MONO % 9.2 % (2.0-8.0); NEUTROPHILS # 10.5 10^3/uL (1.5-8.5); NEUTROPHILS % 72.8 % (36.0-66.0); PLATELET COUNT, AUTOMATED 385 10^3/uL (150-450); RED BLOOD COUNT 3.86 10^6/uL (4.30-6.10); WHITE BLOOD COUNT 14.5 10^3/uL (4.0-10.0)
[2022-03-18 06:49] VITALS: BP 131/74
[2022-03-18 06:53] LABS: BLOOD UREA NITROGEN 9 MG/DL (7-18); CALCIUM LEVEL 8.3 MG/DL (8.5-10.1); CARBON DIOXIDE LEVEL 28 MEQ/L (21-32); CHLORIDE LEVEL 105 MEQ/L (98-107); GLOMERULAR FILTRATION RATE > 60.0 (>56); GLUCOSE, FASTING 123 MG/DL (70-100); POTASSIUM SERUM 4.3 MEQ/L (3.5-5.1); SODIUM LEVEL 138 MEQ/L (136-145)
[2022-03-18 14:00] VITALS: BP 129/71
[2022-03-18 21:09] VITALS: BP 129/70
[2022-03-19] MEDS: NS 1,000 ML IV SCH ×4 (00:51→20:53)
[2022-03-19] MEDS: metroNIDAZOLE 500 MG in IV 1 EA IV SCH ×3 (04:07→20:52)
[2022-03-19] MEDS: CIPROFLOXACIN 400 MG in IV 1 EA IV SCH ×2 (05:23→17:47)
[2022-03-19 05:39] VITALS: BP 133/69
[2022-03-19 06:22] LABS: BASO # 0.1 10^3/uL (0.0-0.2); BASO % 0.6 % (0.0-1.0); EOS # 0.3 10^3/uL (0.0-0.5); HEMOGLOBIN 12.3 g/dl (13.5-17.5); LYMPH # 2.1 10^3/uL (1.5-5.0); LYMPH % 14.6 % (24.0-44.0); MEAN CORPUSCULAR HEMOGLOBIN 32.1 pg (27.0-33.0); MEAN CORPUSCULAR HGB CONC 33.2 g/dl (32.0-36.5); MEAN CORPUSCULAR VOLUME 96.6 fl (80.0-96.0); MONO # 1.4 10^3/uL (0.0-0.8); MONO % 9.7 % (2.0-8.0); NEUTROPHILS # 10.5 10^3/uL (1.5-8.5); NEUTROPHILS % 72.1 % (36.0-66.0); PLATELET COUNT, AUTOMATED 397 10^3/uL (150-450); RED BLOOD COUNT 3.83 10^6/uL (4.30-6.10); WHITE BLOOD COUNT 14.5 10^3/uL (4.0-10.0)
[2022-03-19 06:50] LABS: BLOOD UREA NITROGEN 6 MG/DL (7-18); CALCIUM LEVEL 8.2 MG/DL (8.5-10.1); CARBON DIOXIDE LEVEL 27 MEQ/L (21-32); CHLORIDE LEVEL 104 MEQ/L (98-107); CREATININE FOR GFR 0.84 MG/DL (0.70-1.30); GLOMERULAR FILTRATION RATE > 60.0 (>56); GLUCOSE, FASTING 144 MG/DL (70-100); POTASSIUM SERUM 4.3 MEQ/L (3.5-5.1); SODIUM LEVEL 136 MEQ/L (136-145)
[2022-03-19] MEDS: GASTROGRAFIN SOLUTION 30ML PO SCH ×2 (12:29→13:18)
[2022-03-19] MEDS ORDERED: ISOVUE-370 76% 100ML VIAL As Ordered ONE (14:17)
[2022-03-19] MEDS ORDERED: KETOROLAC 30 MG/ML 1ML VIAL IV PRN (18:25)
[2022-03-19 20:49] VITALS: BP 131/64
[2022-03-19] MEDS: HEPARIN SOD (PORCINE) 5000UNITS/ML 1ML VIAL/SYRINGE SC SCH (22:27)
[2022-03-20] MEDS: metroNIDAZOLE 500 MG in IV 1 EA IV SCH ×2 (04:13→12:13)
[2022-03-20 04:58] VITALS: BP 148/82
[2022-03-20] MEDS: CIPROFLOXACIN 400 MG in IV 1 EA IV SCH (05:15)
[2022-03-20] MEDS: HEPARIN SOD (PORCINE) 5000UNITS/ML 1ML VIAL/SYRINGE SC SCH ×2 (05:15→14:05)
[2022-03-20] MEDS: NS 1,000 ML IV SCH ×2 (05:15→12:10)
[2022-03-20 06:42] LABS: HEMATOCRIT 37.4 % (42.0-52.0); HEMOGLOBIN 12.2 g/dl (13.5-17.5); MEAN CORPUSCULAR HEMOGLOBIN 31.9 pg (27.0-33.0); MEAN CORPUSCULAR HGB CONC 32.6 g/dl (32.0-36.5); MEAN CORPUSCULAR VOLUME 97.7 fl (80.0-96.0); PLATELET COUNT, AUTOMATED 393 10^3/uL (150-450); RED BLOOD COUNT 3.83 10^6/uL (4.30-6.10); WHITE BLOOD COUNT 15.6 10^3/uL (4.0-10.0)
[2022-03-20 07:08] LABS: BLOOD UREA NITROGEN 5 MG/DL (7-18); CALCIUM LEVEL 8.4 MG/DL (8.5-10.1); CARBON DIOXIDE LEVEL 30 MEQ/L (21-32); CHLORIDE LEVEL 102 MEQ/L (98-107); CREATININE FOR GFR 0.89 MG/DL (0.70-1.30); GLOMERULAR FILTRATION RATE > 60.0 (>56); GLUCOSE, FASTING 158 MG/DL (70-100); POTASSIUM SERUM 4.6 MEQ/L (3.5-5.1); SODIUM LEVEL 134 MEQ/L (136-145)
[2022-03-20 08:47] LABS: ATYPICAL LYMPH 1 % (0-5); EOSINOPHILS 1 % (0-3); LYMPHOCYTES 14 % (16-44); MONOCYTES 5 % (0-5); NEUTROPHILS 78 % (28-66); PLATELET ESTIMATE NORMAL (NORMAL)
[2022-03-20] MEDS ORDERED: CIPR500S PO (13:19)
[2022-03-20] MEDS ORDERED: METR-265 PO (13:19)
[2022-03-20] MEDS ORDERED: CIPR-249 PO (13:33)
[2022-03-20 14:00] VITALS: BP 98/58
[2022-03-20 14:41] VITALS: BP 110/68
== END 2022-03-20 14:35 | disposition home or self-care (01) | DRG 244 ==
LOC: M ED 12:33 → M ED INP 20:11 → M MS5PR 03-16 17:00
PROVIDERS: ADMIT Internal Medicine; ATTEND Family Medicine
DX: K57.20 Diverticulitis of large intestine with perforation and abscess without bleeding (principal); D35.00 Benign neoplasm of unspecified adrenal gland; D72.829 Elevated white blood cell count, unspecified; F10.10 Alcohol abuse, uncomplicated; R19.7 Diarrhea, unspecified; F17.200 Nicotine dependence, unspecified, uncomplicated

== ENCOUNTER → 2022-04-12 | Outpatient (CLI) | payer OTHER ==
[~2022-04-12] MED LIST changes: +CIPR500S PO; +GASTROGRAFIN SOLUTION 30ML (Q9963) As Ordered ONE; +ISOVUE-370 76% 100ML VIAL As Ordered ONE; +METR-265 PO
== END ==
LOC: M RAD 15:54
PROVIDERS: ATTEND Surgery
DX: K57.33 Diverticulitis of large intestine without perforation or abscess with bleeding (principal)
CPT/HCPCS: 74178; Q9963; Q9967

== ENCOUNTER → 2022-07-08 | Outpatient (REF) | payer OTHER ==
[~2022-07-08] MED LIST changes: -GASTROGRAFIN SOLUTION 30ML (Q9963) As Ordered ONE; -ISOVUE-370 76% 100ML VIAL As Ordered ONE
[2022-07-08 11:27] LABS: HEMATOCRIT 52.2 % (42.0-52.0); HEMOGLOBIN 17.1 g/dl (13.5-17.5); MEAN CORPUSCULAR HGB CONC 32.8 g/dl (32.0-36.5); MEAN CORPUSCULAR VOLUME 97.8 fl (80.0-96.0); PLATELET COUNT, AUTOMATED 315 10^3/uL (150-450); RED BLOOD COUNT 5.34 10^6/uL (4.30-6.10); WHITE BLOOD COUNT 9.2 10^3/uL (4.0-10.0)
[2022-07-08 11:35] LABS: ALBUMIN 3.7 G/DL (3.2-5.2); ALKALINE PHOSPHATASE 94 U/L (46-116); ALT/SGPT 25 U/L (7.0-40); AST/SGOT 20 U/L (<34); BILIRUBIN,TOTAL 0.2 MG/DL (0.3-1.2); BLOOD UREA NITROGEN 20 MG/DL (9-23); CALCIUM LEVEL 9.2 MG/DL (8.5-10.1); CARBON DIOXIDE LEVEL 29 MMOL/L (20-31); CHLORIDE LEVEL 105 MMOL/L (98-107); CHOLESTEROL LEVEL 234 MG/DL (<200); CHOLESTEROL RISK RATIO 5.12 (<5); GLOMERULAR FILTRATION RATE > 60.0 (>56); GLUCOSE, FASTING 101 MG/DL (60-100); HDL CHOLESTEROL 45.7 MG/DL (>40); LDL CHOLESTEROL 149.1 MG/DL (<100); NON-HDL-C 188 MG/DL; POTASSIUM SERUM 4.3 MMOL/L (3.5-5.1); SODIUM LEVEL 140 MMOL/L (136-145); TOTAL PROTEIN 7.4 G/DL (5.7-8.2); TRIGLYCERIDES LEVEL 196 MG/DL (<150)
[2022-07-08 11:37] LABS: FREE T4 0.83 NG/DL (0.89-1.76); THYROID STIMULATING HORMONE 1.036 uIU/ML (0.55-4.78)
== END ==
LOC: M SFHCCLAY 09:05
PROVIDERS: ATTEND Nurse Practitioner Family
DX: E78.5 Hyperlipidemia, unspecified (principal); Z13.1 Encounter for screening for diabetes mellitus; D72.829 Elevated white blood cell count, unspecified; F17.210 Nicotine dependence, cigarettes, uncomplicated; R79.89 Other specified abnormal findings of blood chemistry

== ENCOUNTER → 2022-07-10 | Outpatient (REF) | payer OTHER | LOC: M SFHCCLAY 09:28 | PROVIDERS: ATTEND Nurse Practitioner Family | DX: Z01.812 Encounter for preprocedural laboratory examination (principal); Z20.822 Contact with and (suspected) exposure to COVID-19 ==

== ENCOUNTER → 2025-06-01 | Outpatient (REF) | payer OTHER, SELFPAY ==
[~2025-06-01] MED LIST changes: +CEPH500C PO; +CLOT1CRE56 TOP; +HYDR25OIN TOP; +LEVO1TAB39 PO
[2025-06-01 17:50] LABS: ALT/SGPT 58 U/L (7.0-40); AST/SGOT 52 U/L (<34); CALCIUM LEVEL 9.5 MG/DL (8.5-10.1); CARBON DIOXIDE LEVEL 28 MMOL/L (20-31); CHLORIDE LEVEL 104 MMOL/L (98-107); CREATININE FOR GFR 0.94 MG/DL (0.70-1.30); GLOMERULAR FILTRATION RATE > 90.0 (>56); POTASSIUM SERUM 4.6 MMOL/L (3.5-5.1); SODIUM LEVEL 136 MMOL/L (136-145)
== END ==
LOC: M SFHCCLAY 11:34
PROVIDERS: ATTEND Nurse Practitioner Family
DX: B49 Unspecified mycosis (principal)